=== PATIENT | female | born 1975 | race Caucasian/White ===

== ENCOUNTER 2017-03-19 08:23 | Emergency (ER) | payer OTHER ==
[~2017-03-19 08:23] MED LIST: ABILIFY; ALBUTEROL17 GM; ALBUTEROL17 GM INH; AMBIEN PO; AMOXICILLIN PO; BACTRIM DS TABL1 TA1 PO; BENADRYL; BLEPH-105 M1 OU; CIPRO PO; CLEOCIN PO; COGENTIN; COGENTIN PO; DARVOCET-N 1001 TAB PO; DEPAKOTE; DEPAKOTE ER250 MG PO; DEPAKOTE PO; FAMOTIDINE PO; FLOVENT DISKU100 MCG IH; GEODAN PO; HALDOL DECAN50 MG/M1 IM; HYDROCODON-ACE1 EAC7 PO; MACROBID 100 M100 MG PO; MOBIC PO; NEURONTIN PO; PAXIL; PROLIXIN10 MG PO; RESPERDAL; SEROQUEL PO; SKELAXIN PO; TOPAMAX; ULTRAM PO; VESICARE PO; VICODIN 5/1 TAB 5/50 PO
== END 2017-03-19 08:45 | disposition home or self-care (01) ==
LOC: CED 08:23 → CFTX 08:23
DX: H65.91 Unspecified nonsuppurative otitis media, right ear (principal); H61.22 Impacted cerumen, left ear
CPT/HCPCS: 99282

== ENCOUNTER 2017-03-26 17:18 | Emergency (ER) | payer OTHER ==
[2017-03-26 21:18] LABS: ALBUMIN SERUM 3.6 g/dL (3.5-5.0); BILIRUBIN, DIRECT 0.1 mg/dL (0.0-0.2); BILIRUBIN,INDIRECT 0.3 mg/dL (0.0-0.9); BILIRUBIN,TOTAL 0.4 mg/dL (0.2-2.0); CALCIUM SERUM 8.9 mg/dL (8.4-10.2); CREATININE SERUM 0.5 mg/dL (0.6-1.4); GLOM FILT RATE Estimated 118.6 mL/min (>60); POTASSIUM 3.8 mmol/L (3.5-5.1); PROTEIN TOTAL SERUM 7.4 g/dL (6.0-8.3)
== END 2017-03-26 21:49 | disposition home or self-care (01) ==
LOC: CED 17:18
PROVIDERS: Emergency Medicine
DX: K08.89 Other specified disorders of teeth and supporting structures (principal); R60.0 Localized edema; I10 Essential (primary) hypertension; Z88.5 Allergy status to narcotic agent; Z88.6 Allergy status to analgesic agent; Z91.040 Latex allergy status; Z88.8 Allergy status to other drugs, medicaments and biological substances
CPT/HCPCS: 80048; 80076; 99283